=== PATIENT | female | born 1970 | race Caucasian/White ===

== ENCOUNTER 2016-06-20 18:25 | Emergency (ER) | payer BC ==
[2016-06-20 19:03] VITALS: O2SAT 98
[2016-06-20] MEDS ORDERED: PROTONIX 40 MG IV IV ONE ×2 (19:34→19:44)
[2016-06-20] MEDS ORDERED: Zofran 4 MG/2 ML VIAL IV ONE (19:34)
[2016-06-20] MEDS ORDERED: MORPHINE SULFATE 10 MG/ML IV ONE (19:34)
--- NOTE | 2016-06-20 19:37 | ERPHSYRPT ---
- History of Present Illness Time Seen by Provider: 06/20/16 19:15 Historian: patient Exam Limitations: clinical condition Patient Subjective Stated Complaint: pt states she began having abdominal pain since this morning. states she does have an umbilical hernia. worse after mowing yard. Triage Nursing Assessment: pt pink, warm, dry. hernia noted to abdomen. pt tender in right lower quad. bowel sounds present. pt afebrile. Physician History: PATIENT WITH HISTORY OF UMBILICAL HERNIA COMPLAINS OF RIGHT SIDE ABDOMINAL PAIN ADJACENT TO UMBILICAL HERNIA. DENIES NAUSEA, EMESIS, URINARY SYMPTOMS OR DIARRHEA. Timing/Duration: today Quality: cramping Abdominal Pain Onset Location: RLQ, periumbilical Pain Radiation: no radiation Severity of Pain-Max: moderate Severity of Pain-Current: moderate Modifying Factors: Improves With: nothing Associated Symptoms: denies symptoms Previous symptoms: no prior history Allergies/Adverse Reactions: No Known Drug Allergies Allergy (Unverified 06/20/16 19:04) Home Medications: Aspirin/Acetaminophen/Caffeine [Excedrin Migraine Caplet] 1 each PO UD 06/20/16 [History] Hydrocodone Bit/Acetaminophen [[place]iler 5-325 Tablet] 1 each PO Q4-6HPRN PRN [History] Hx Tetanus, Diphtheria Vaccination/Date Given: Yes (unknown) Hx Influenza Vaccination/Date Given: No Hx Pneumococcal Vaccination/Date Given: No Immunizations Up to Date: Yes - Review of Systems Constitutional: No Fever, No Chills Eyes: No Symptoms Ears, Nose, & Throat: No Symptoms Respiratory: No Symptoms, No Cough, No Dyspnea Cardiac: No Symptoms, No Chest Pain, No Edema, No Syncope Abdominal/Gastrointestinal: Abdominal Pain, No Nausea, No Vomiting, No Diarrhea Genitourinary Symptoms: No Dysuria Musculoskeletal: No Symptoms, No Back Pain, No Neck Pain Skin: No Symptoms, No Rash Neurological: No Symptoms, No Dizziness, No Focal Weakness, No Sensory Changes Psychological: No Symptoms Endocrine: No Symptoms All Other Systems: Reviewed and Negative - Past Medical History Pertinent Past Medical History: No - Past Surgical History Past Surgical History: Yes Female Surgical History: Tubal Ligation - Social History Smoking Status: Current every day smoker How long have you smoked: 25 Exposure to second hand smoke: No Drug Use: none Patient Lives Alone: No - Female History Hx Last Menstrual Period: now - Nursing Vital Signs Nursing Vital Signs: Initial Vital Signs Temperature 99.4 F Temperature Source Oral Pulse Rate 101 Respiratory Rate 18 Blood Pressure [] 132/85 Pain Intensity 5 - Physical Exam General Appearance: no apparent distress, alert Eye Exam: PERRL/EOMI, eyes nml inspection Ears, Nose, Throat Exam: normal ENT inspection, pharynx normal, moist mucous membranes Neck Exam: normal inspection, non-tender, supple, full range of motion Respiratory Exam: normal breath sounds, lungs clear, No respiratory distress Cardiovascular Exam: regular rate/rhythm, normal heart sounds Gastrointestinal/Abdomen Exam: soft, normal bowel sounds, tenderness (REDUCIBLE UMBILICAL HERNIA), No mass Back Exam: normal inspection, normal range of motion, No CVA tenderness, No vertebral tenderness Extremity Exam: normal inspection, normal range of motion, pelvis stable Neurologic Exam: alert, oriented x 3, cooperative, normal mood/affect, nml cerebellar function, sensation nml, No motor deficits Skin Exam: normal color, warm, dry SpO2 Interpretation: normal SpO2: 98 Oxygen Delivery: Room Air - CT Exams Abdomen/Pelvis CT Interpretation: Tele-radiologist Report (THERE IS A FAT CONTAINING UMBILICAL HERNIA, NO FREE AIR, NO SIGNIFICANT FLUID COLLECTION, NO CALCIFIED STONES OR DUCTAL DILATION) Ordered Tests: Active Orders 24 hr Category Date Time Status IV Insertion STAT Care 06/20/16 19:34 Active ABDOMEN AND PELVIS W CONTRAST [CT] Stat Exams 06/20/16 19:35 Taken BMP Stat Lab 06/20/16 19:47 Completed CBC W DIFF Stat Lab 06/20/16 19:47 Completed UA W/ MICROSCOPIC Stat Lab 06/20/16 19:40 Completed Medication Summary Generic Name Dose Route Start Last Admin Trade Name Freq PRN Reason Stop Dose Admin Acetaminophen/Hydrocodone Bitart 2 tab 06/20/16 21:53 Filer 10/325 Mg Tablet PO 06/20/16 21:54 SENT HOME W/ PATIENT ONE Sodium Chloride 1,000 mls @ 500 mls/hr 06/20/16 19:45 06/20/16 19:50 Sodium Chloride 0.9% 1000 Ml IV 07/20/16 19:44 500 mls/hr .Q2H RUSH Administration Discontinued Medications Generic Name Dose Route Start Last Admin Trade Name Freq PRN Reason Stop Dose Admin Morphine Sulfate 8 mg 06/20/16 19:34 06/20/16 20:02 Morphine Sulfate 10 Mg/Ml IV 06/20/16 19:35 8 mg STAT ONE Administration Morphine Sulfate Confirm 06/20/16 19:44 Morphine Sulfate 10 Mg/Ml Administered 06/20/16 19:45 Dose 10 mg .ROUTE .STK-MED ONE Ondansetron HCl 4 mg 06/20/16 19:34 06/20/16 19:52 Zofran 4 Mg/2 Ml Vial IV 06/20/16 19:35 4 mg STAT ONE Administration Ondansetron HCl Confirm 06/20/16 19:44 Zofran 4 Mg/2 Ml Vial Administered 06/20/16 19:45 Dose 4 mg .ROUTE .STK-MED ONE Pantoprazole Sodium 40 mg 06/20/16 19:34 06/20/16 19:54 Protonix 40 Mg Iv IV 06/20/16 19:35 40 mg STAT ONE Administration Pantoprazole Sodium Confirm 06/20/16 19:44 Protonix 40 Mg Iv Administered 06/20/16 19:45 Dose 40 mg IV .STK-MED ONE Lab/Rad Data: Laboratory Result Diagrams 06/20/16 19:47 06/20/16 19:47 Laboratory Results 06/20/16 06/20/16 06/20/16 Range/Units 19:47 19:47 19:40 WBC 10.2 (4.0-10.5) K/mm3 RBC 3.89 L (4.1-5.4) M/mm3 Hgb 10.0 L (12.0-16.0) gm/dl Hct 32.1 L (35-47) % MCV 82.5 (78-100) fl MCH 25.7 L (26-32) pg MCHC 31.2 L (32-36) g/dl RDW 14.8 H (11.5-14.0) % Plt Count 283 (150-450) K/mm3 MPV 9.8 H (6-9.5) fl Gran % 87.6 H (36.0-66.0) % Lymphocytes % 6.8 L (24.0-44.0) % Monocytes % 5.1 (0.0-12.0) % Eosinophils % 0.3 (0.00-5.0) % Basophils % 0.2 (0.0-0.4) % Basophils # 0.02 (0-0.4) Sodium 139 (136-145) mEq/L Potassium 3.4 L (3.5-5.1) mEq/L Chloride 104 (98-107) mEq/L Carbon Dioxide 22.3 (21-32) mEq/L Anion Gap 15.8 H (5-15) MEQ/L BUN 9 (9-20) mg/dL Creatinine 0.77 (0.55-1.30) mg/dl Estimated GFR > 60 ML/MIN Glucose 107 (70-110) MG/DL Calcium 8.8 (8.5-10.1) mg/dL Ur Collection Type CLEAN CATCH Urine Color FIDEL (YELLOW) Urine Appearance CLOUDY (CLEAR) Urine pH 5.5 (5-6) Ur Specific [place] >=1.030 (1.005-1.025) Urine Protein 100 (Negative) Urine Glucose (UA) NEGATIVE (NEGATIVE) mg/dL Urine Ketones TRACE (NEGATIVE) Urine Nitrite NEGATIVE (NEGATIVE) Urine Bilirubin MODERATE (NEGATIVE) Urine Urobilinogen 1 (0-1) mg/dL Urine WBC (Auto) NEGATIVE (NEGATIVE) Urine RBC (Auto) LARGE (0-5) [place]/ul Urine Microscopic RBC >100 (0-2) /HPF Urine Microscopic WBC 0-2 (0-5) /HPF Ur Epithelial Cells FEW (FEW) /HPF Urine Bacteria MANY (NEGATIVE) /HPF Urine Mucus SLIGHT (NEGATIVE) /HPF Specimen Received [id number] - Progress Progress Note: 06/20/16 21:42 PATIENT GIVEN NORMAL SALINE 500ML/HR, ZOFRAN 4MG, MORPHINE 8MG IV. Will see patient in: ED Counseled pt/family regarding: lab results, need for follow-up - Departure Time of Disposition: 21:54 Departure Disposition: Home Clinical Impression: REDUCIBLE UMBILICAL/VENTRAL HERNIA Condition: Stable Critical Care Time: No Referrals: DOCTOR,NO FAMILY [Primary Care Provider] - Additional Instructions: CALL DR MCDANIEL GENERAL SURGEON TOMORROW AT TO SCHEDULE A FOLLOWUP APPOINTMENT. [place]CO 10/325 EVERY 4 FOURS FOR PAIN NEEDED. Prescriptions: Hydrocodone/APAP 10/325 mg [Filer 10/325 MG Tablet] 1 tab PO Q4H PRN PRN # 15 tablet PRN Reason: Pain
[2016-06-20] MEDS ORDERED: MORPHINE SULFATE 10 MG/ML ONE (19:44)
[2016-06-20] MEDS ORDERED: Sodium Chloride 0.9% 1000 ML 1,000 ML ONE (19:44)
[2016-06-20] MEDS ORDERED: Zofran 4 MG/2 ML VIAL ONE (19:44)
[2016-06-20] MEDS ORDERED: Sodium Chloride 0.9% 1000 ML 1,000 ML IV SCH (19:45)
[2016-06-20 19:51] LABS: BASOPHIL % 0.2 % (0.0-0.4); Eosinophil % 0.3 % (0.00-5.0); Granulocytes % 87.6 % (36.0-66.0); Lymphocytes % 6.8 % (24.0-44.0); Mean Cell Volume 82.5 fl (78-100); Mean Corpuscular Hemoglobin 25.7 pg (26-32); Mean Platelet Volume 9.8 fl (6-9.5); Monocytes % 5.1 % (0.0-12.0); Platelet Count 283 K/mm3 (150-450); Red Blood Count 3.89 M/mm3 (4.1-5.4); Red Cell Distribution Width 14.8 % (11.5-14.0); White Blood Count 10.2 K/mm3 (4.0-10.5)
[2016-06-20 19:55] LABS: COMPLETE URINE MICROSCOPIC? YES; Collection Type CLEAN CATCH; Ph 5.5 (5-6)
[2016-06-20 19:56] LABS: Bacteria MANY /HPF (NEGATIVE); Epithelial Cells FEW /HPF (FEW); Mucus SLIGHT /HPF (NEGATIVE); WBC 0-2 /HPF (0-5)
[2016-06-20 20:19] LABS: ANION GAP 15.8 MEQ/L (5-15); BLOOD UREA NITROGEN 9 mg/dL (9-20); CHLORIDE 104 mEq/L (98-107); Carbon Dioxide 22.3 mEq/L (21-32); Glucose 107 MG/DL (70-110); Potassium 3.4 mEq/L (3.5-5.1); SODIUM 139 mEq/L (136-145)
[2016-06-20] MEDS ORDERED: Norco 10/325 MG Tablet PO ONE (21:53)
[2016-06-20] MEDS ORDERED: Norco 10/325 MG Tablet ONE (21:56)
[2016-06-20 22:08] VITALS: BP 129/70; PULSE 78
--- NOTE | 2016-06-21 09:11 | XRAY ---
Indication: Periumbilical and right lower quadrant pain. Diarrhea and nausea. Multiple contiguous axial images obtained through the abdomen and pelvis using 80 cc Isovue 370 contrast only. Comparison: None Lung bases are essentially clear. Heart is not enlarged. Noncontrasted stomach and bowel loops appear nonobstructed. Appendix is identified retrocecal measuring 8 mm in diameter. There is minimal periappendiceal stranding especially near the base of the appendix concerning for mild/early appendicitis. No free fluid/air. Tiny calcified splenic granulomas. Liver is enlarged measuring 21 cm in greatest dimension. Remaining liver, gallbladder, pancreas, adrenal glands, kidneys, ureters, bladder, and uterus appear unremarkable. Minimal aortic calcifications. No AAA or pathologic retroperitoneal lymphadenopathy. Osseous structures intact with mild spinal degenerative changes greatest at the lumbosacral junction. Moderate size fatty umbilical hernia. Impression: 1. Prominent appendix with periappendiceal stranding concerning for appendicitis. 2. Incidental hepatomegaly and fatty umbilical hernia. Comment: Preliminary interpretation was made by [facility] who reports nonvisualization of the appendix. I gave telephone report to Dr. Duran in the ER at 0900 hrs. on June 21, 2016. CT DI 15.91
== END 2016-06-20 22:08 | disposition home or self-care (01) ==
LOC: ED 18:25
DX: K43.9 Ventral hernia without obstruction or gangrene (principal); K42.9 Umbilical hernia without obstruction or gangrene
CPT/HCPCS: 36000; 36415; 74177; 80048; 81000; 85025; 96360; 96361; 96374; 96375; 99284; J2270; J2405; A9270-GY

== ENCOUNTER 2016-06-21 10:50 | Observation (INO) | payer BC ==
[~2016-06-21 10:50] MED LIST: BRIDION 200MG/2ML IV ONE; DILAUDID 2 MG INJECTION IV ONE; DIPRIVAN 200 MG/20 ML IV ONE; Decadron 4 MG INJ IV ONE; Quelicin Fliptop 200 MG/10 ML IJ ONE; SUBLIMAZE 100 MCG/2 ML IV ONE; TORAdol 30 mg Injection IJ ONE; Zemuron 100 MG/10 ML IJ ONE; Zofran 4 MG/2 ML VIAL IV ONE
--- NOTE | 2016-06-21 11:22 | ERPHSYRPT ---
- History of Present Illness Time Seen by Provider: 06/21/16 10:59 Historian: patient, family Patient Subjective Stated Complaint: ABD PAIN Triage Nursing Assessment: ABD PAIN SINCE LAST NIGHT. SEEN IN ER YESTERDAY. CALLED BACK TODAY FOR POSSIBLE DISCREPANCY ON THE CT OVERREAD. PT STATES SHE IS 'TENDER' TO RT LOWER QUAD. SLIGHT NAUSEA WITH NO VOMITING. NORMAL BM YESTERDAY Physician History: CC: abd pain Hx: 46 y/o healthy patient seen in ER last night for RLQ abd pain. She had some diarrhea Monday. Yesterday RLQ abd pain. No fever or vomiting. Current normal menses. Prior BTL. She was in ER last night with abd pain. CT prelim report showed umbilical hernia, otherwise neg. This AM the radiologist gave final report of appendiceal stranding and possible early appendicitis. She was called back for evaluation. She continues to have RLQ. She took two exedrin this AM for headache. No fever. Not hungry this AM. No local doctor. No allergies and no chronic medications. Pain is aching and moderate, was worse yesterday but persists. Timing/Duration: day(s) (2) Severity of Pain-Max: moderate Severity of Pain-Current: moderate Allergies/Adverse Reactions: No Known Drug Allergies Allergy (Unverified 06/21/16 11:10) Home Medications: Aspirin/Acetaminophen/Caffeine [Excedrin Migraine Caplet] 1 each PO UD 06/20/16 [History] Hydrocodone Bit/Acetaminophen [[place] 5-325 Tablet] 1 each PO Q4-6HPRN PRN [History] Hx Tetanus, Diphtheria Vaccination/Date Given: Yes Hx Influenza Vaccination/Date Given: No Hx Pneumococcal Vaccination/Date Given: No Immunizations Up to Date: Yes - Review of Systems Constitutional: No Fever, No Chills Eyes: No Symptoms Ears, Nose, & Throat: No Symptoms Respiratory: No Cough Cardiac: No Chest Pain Abdominal/Gastrointestinal: Abdominal Pain, Nausea, Diarrhea (2 days ago), No Vomiting Genitourinary Symptoms: Vaginal Bleeding (current menses), No Dysuria, No Skin: No Rash Neurological: Headache (this AM) All Other Systems: Reviewed and Negative - Past Medical History Pertinent Past Medical History: No - Past Surgical History Past Surgical History: Yes Female Surgical History: Tubal Ligation - Social History Smoking Status: Current every day smoker How long have you smoked: 25 Exposure to second hand smoke: No Drug Use: none Patient Lives Alone: No - Female History Hx Last Menstrual Period: CURRENT - Nursing Vital Signs Nursing Vital Signs: Initial Vital Signs Temperature 98.6 F Temperature Source Oral Pulse Rate 79 Respiratory Rate 18 Blood Pressure [Right Arm] 148/92 Pain Intensity 3 - Physical Exam General Appearance: alert, other (pleasant) Eye Exam: PERRL/EOMI Ears, Nose, Throat Exam: normal ENT inspection, moist mucous membranes Neck Exam: normal inspection, non-tender, supple Respiratory Exam: normal breath sounds, lungs clear Cardiovascular Exam: regular rate/rhythm Gastrointestinal/Abdomen Exam: soft, tenderness (point in RLQ with guarding) Back Exam: normal inspection, normal range of motion Extremity Exam: normal inspection, normal range of motion Neurologic Exam: alert, oriented x 3, cooperative, sensation nml, No motor deficits Skin Exam: warm, dry, No rash SpO2 Interpretation: normal SpO2: 99 Oxygen Delivery: Room Air - Course Nursing assessment & vital signs reviewed: Yes Ordered Tests: Active Orders 24 hr Category Date Time Status IV Insertion STAT Care 06/21/16 11:07 Active NPO (ED) STAT Care 06/21/16 11:07 Active PELVIC [US] Stat Exams 06/21/16 12:05 Ordered BMP Stat Lab 06/21/16 11:10 Received CBC W DIFF Stat Lab 06/21/16 11:10 Completed HCG QUALITATIVE,SERUM Stat Lab 06/21/16 11:10 Received Lab/Rad Data: Laboratory Result Diagrams 06/21/16 11:10 Laboratory Results 06/21/16 Range/Units 11:10 WBC 6.4 (4.0-10.5) K/mm3 RBC 4.02 L (4.1-5.4) M/mm3 Hgb 10.3 L (12.0-16.0) gm/dl Hct 33.5 L (35-47) % MCV 83.3 (78-100) fl MCH 25.6 L (26-32) pg MCHC 30.7 L (32-36) g/dl RDW 14.9 H (11.5-14.0) % Plt Count 277 (150-450) K/mm3 MPV 10.0 H (6-9.5) fl Gran % 74.2 H (36.0-66.0) % Lymphocytes % 16.8 L (24.0-44.0) % Monocytes % 7.2 (0.0-12.0) % Eosinophils % 1.6 (0.00-5.0) % Basophils % 0.2 (0.0-0.4) % Basophils # 0.01 (0-0.4) - Progress Progress Note: 06/21/16 12:05 Pt declines pain meds here. Called Dr Bryant who advised get pelvic sonogram and he will see for consultation. CAlled Dr Figueroa (oc) who will place in obs. Counseled pt/family regarding: lab results, diagnosis, need for follow-up, rad results - Departure Time of Disposition: 12:06 Departure Disposition: Observation Clinical Impression: RLQ abdominal pain, Acute appendicitis Condition: Stable Critical Care Time: No
[2016-06-21 11:50] LABS: BASOPHIL % 0.2 % (0.0-0.4); Eosinophil % 1.6 % (0.00-5.0); Granulocytes % 74.2 % (36.0-66.0); Lymphocytes % 16.8 % (24.0-44.0); Mean Cell Volume 83.3 fl (78-100); Mean Corpuscular Hemoglobin 25.6 pg (26-32); Monocytes % 7.2 % (0.0-12.0); Platelet Count 277 K/mm3 (150-450); Red Blood Count 4.02 M/mm3 (4.1-5.4); Red Cell Distribution Width 14.9 % (11.5-14.0); White Blood Count 6.4 K/mm3 (4.0-10.5)
[2016-06-21 11:58] LABS: ANION GAP 14.5 MEQ/L (5-15); BLOOD UREA NITROGEN 6 mg/dL (9-20); CHLORIDE 106 mEq/L (98-107); Carbon Dioxide 24.8 mEq/L (21-32); Glucose 88 MG/DL (70-110); Potassium 3.6 mEq/L (3.5-5.1); SODIUM 142 mEq/L (136-145)
[2016-06-21 12:48] LABS: ALBUMIN 4.1 g/dL (3.4-5.0); BILIRUBIN,TOTAL 0.9 mg/dL (0.2-1.0); Direct Bilirubin 0.17 MG/DL (0.0-0.2)
[2016-06-21] MEDS ORDERED: Zofran 4 MG/2 ML VIAL IV PRN (12:50)
[2016-06-21] MEDS ORDERED: TYLENOL 325 MG PO PRN (12:56)
[2016-06-21] MEDS ORDERED: DILAUDID 2 MG INJECTION IV PRN (12:57)
--- NOTE | 2016-06-21 13:18 | HP ---
HISTORY OF PRESENT ILLNESS: This is a 46 year-old patient who initially presented to the emergency department on 06/20/2016 complaining of right lower abdominal pain. She had a CT scan done which initially was read as non-visualization of the appendix. This was then over-read by our radiologist today and he was concerned about seeing prominent appendix with periappendiceal stranding concerning for appendicitis. He also noted hepatomegaly and a fatty umbilical hernia. The patient was called back to the emergency room and seen by Dr. Duran who noted she continued to have right lower quadrant tenderness. He called Dr. Bryant who agreed to see the patient here in the hospital but wanted her admitted to medical service so the patient was admitted for further evaluation and treatment by the surgeon. The patient states her pain started yesterday when she was mowing with a rider mower. She states that it was so back that she was crying. At first she thought it was her umbilical hernia but then the pain moved more to the right lower side. She denied any fever. She had some nausea but no vomiting. She reports she had diarrhea all day Monday. She did have a normal bowel movement yesterday morning. She states she last ate about 2300 hours last night. She states her abdomen is better today but it is glass cut off tender. In the emergency room she was given morphine. She thinks this may have given her a headache. The ER gave her a script for [place] but she did not start this she reports. She reports history of cyst on her ovary. She is currently on her period now and also has heavy periods. REVIEW OF SYSTEMS: She has not had any chest pain. No dyspnea. No rashes. No lower extremity edema. She has a headache as described above. Otherwise review of systems as noted in the history of present illness. PAST MEDICAL HISTORY: Menorrhagia. Cyst on her ovary. Anxiety. PAST SURGICAL HISTORY: Tubal ligation. MEDICATIONS: None. ALLERGIES: NKDA. SOCIAL HISTORY: She is . She works at the [employer] in [employer]. She smokes less than one pack per day. She drinks two to three alcoholic drinks a night which she reports she uses for anxiety. She denies any history of withdrawal. She denies any use of marijuana, cocaine, meth, heroin or any other illicit drugs. FAMILY HISTORY: Her mother is living and has hypertension and irregular heartbeat. Her father is and had history of brain cancer, coronary artery disease and hypertension. PHYSICAL EXAMINATION: VITAL SIGNS: Temperature current 98.6F, temperature max last night in the emergency room 99.4F, heart rate 79, respiratory rate 18, blood pressure 148 to 92. Oxygen saturation 99% on room air. GENERAL: The patient is a pleasant talkative lady lying in bed in no acute distress. CVS: She has a regular rate and rhythm. No murmurs, gallops or rubs. CHEST: Clear to auscultation bilaterally. No crackles or wheezes. ABDOMEN: Tenderness in her right lower quadrant with some guarding. No rigidity. Normal bowel sounds. EXTREMITIES: No clubbing, cyanosis or edema. SKIN: Warm, dry and intact. LABORATORY DATA AND TESTS: White blood cell count today is 6,400 with 74% granulocytes, 16% lymphocytes. BMP within normal limits. She has hepatic panel that is pending. Serum test was negative. Please see the radiologist report for the CT scan from last night. ASSESSMENT AND PLAN: 1) Right lower quadrant pain. Again the surgeon has been consulted and plans to see the patient today as there is a concern for possible appendicitis. 2) Hepatomegaly. Her hepatic function panel is in lab. 3) History of anxiety currently stable at this time. 4) History of alcohol use. Need to monitor her closely for symptoms of withdrawal.
[2016-06-21] MEDS: Dextrose 5%-Lr IV Solution 1000 ML 1,000 ML IV SCH ×2 (14:28→15:36)
[2016-06-21] MEDS: Pepcid 20 MG VIAL IV SCH ×2 (14:29→22:00)
[2016-06-21] MEDS: NICODERM CQ 14 MG TOP SCH (14:31)
--- NOTE | 2016-06-21 14:57 | XRAY ---
Indication: Right lower quadrant pain. Two-dimensional transabdominal pelvic ultrasound was performed. Comparison: None Urinary bladder not adequately distended producing poor acoustic window. Uterus is anteverted measuring 12.3 x 5.1 x 7.0 cm. No focal solid/cystic mass. Endometrial stripe measures 8.7 mm in thickness. No endometrial cavity mass or fluid collection. Right ovary measures 2.9 x 2.0 x 2.1 cm and left measures 3.3 x 2.6 x 2.5 cm. Normal perfusion bilaterally. No suspicious adnexal mass or free fluid. Impression: Negative transabdominal pelvic sonogram.
[2016-06-21] MEDS ORDERED: Sensorcaine 0.25% 10 ML ONE (15:07)
[2016-06-21] MEDS ORDERED: Lactated Ringers 1,000 ML IV ONE ×3 (15:07→16:44)
[2016-06-21] MEDS ORDERED: MEFOXIN 2 GM PREMIX** 50 ML IV ONE (15:43)
[2016-06-21] MEDS ORDERED: Lactated Ringers 1,000 ML IV SCH (16:00)
[2016-06-21] MEDS ORDERED: MEFOXIN 2 GM PREMIX** 50 ML IV SCH (16:00)
[2016-06-21] MEDS ORDERED: KEFZOL 1 GM ONE (16:15)
[2016-06-21] MEDS ORDERED: SUBLIMAZE 100 MCG/2 ML ONE (17:46)
[2016-06-22] MEDS: Dextrose 5%-Lr IV Solution 1000 ML 1,000 ML IV SCH (01:56)
[2016-06-22 05:57] LABS: Eosinophil % 0.2 % (0.00-5.0); Granulocytes % 84.6 % (36.0-66.0); Lymphocytes % 10.3 % (24.0-44.0); Mean Cell Volume 83.4 fl (78-100); Mean Corpuscular Hemoglobin 25.8 pg (26-32); Mean Platelet Volume 10.2 fl (6-9.5); Monocytes % 4.9 % (0.0-12.0); Platelet Count 238 K/mm3 (150-450); Red Blood Count 3.37 M/mm3 (4.1-5.4); Red Cell Distribution Width 14.7 % (11.5-14.0); White Blood Count 6.5 K/mm3 (4.0-10.5)
[2016-06-22 06:06] LABS: ANION GAP 14.9 MEQ/L (5-15); BLOOD UREA NITROGEN 7 mg/dL (9-20); CHLORIDE 104 mEq/L (98-107); Carbon Dioxide 23.5 mEq/L (21-32); Glucose 118 MG/DL (70-110); SODIUM 138 mEq/L (136-145)
--- NOTE | 2016-06-22 07:38 | CONS ---
CONSULT DATE: 06/21/2016 HISTORY: The patient is a 46 year-old had some abdominal pain localized to right lower quadrant over the past couple of days. She was in the hospital yesterday. Initial reading on CT scan was nondiagnostic. The radiologist looked at it today and felt she had appendicitis. She came in and they did an ultrasound that did not show any other obvious etiology, according to the staff. It was felt that she would benefit from diagnostic laparoscopy laparoscopic appendectomy possible open. PAST MEDICAL HISTORY: She denied any chronic illnesses. PAST SURGICAL HISTORY: She had tubal in the past. MEDICATIONS: None on a regular basis. ALLERGIES: NKDA. FAMILY HISTORY: Heart disease, diabetes. She has family history of some Crohn's in the past. SOCIAL HISTORY: Smoker less than a pack per day. She does drink alcohol one to three drinks a day, denies abuse. REVIEW OF SYSTEMS: Twelve systems reviewed per admission assessment pertinent for as noted above. Soreness is a little bit better than it was earlier. LAB DATA AND TESTS: White blood cell count was not elevated at 6. However, the radiologist feels distended appendix with inflammatory changes consistent with early acute appendicitis. PHYSICAL EXAMINATION: GENERAL: No acute distress. HEENT: Sclera nonicteric. NECK: No JVD. CHEST: Equal excursion, nonlabored breathing. CVS: Regular rate and rhythm. ABDOMEN: Soft, some localized tenderness, a little bit of guarding in the right lower quadrant. No rebound. Additionally she does have an umbilical area hernia with some incarcerated fat. EXTREMITIES: No significant edema. NEURO: Alert, moving extremities grossly symmetrically. No gross motor deficits noted. IMPRESSION: Acute right lower quadrant pain. CT suspicious for acute appendicitis per radiologist. Given her symptoms I felt it would be safer to proceed with diagnostic laparoscopy, laparoscopic appendectomy possible open. Additionally she has fat included in the hernia will make umbilical port incision likely will reduce that with sutures. She understands we cannot repair with mesh which would have a lower risk of recurrence but do at the same time. General risk of bleeding or infection, risk of trocar injury or hernia, small risk bowel, bladder or blood vessel injury, small risk of intra-abdominal abscess or fistula formation possibly requiring percutaneous or open drainage even at a later date, general risk of anesthesia, deep venous thrombosis, pulmonary embolism, pneumonia, possibility of finding a normal appendix likely will remove incidentally and look for other etiology that might need taken care of surgically. She understands and agrees to the planned procedure, will proceed with diagnostic laparoscopy, laparoscopic appendectomy, possible open as well as repair of the hernia mid abdomen with sutures.
--- NOTE | 2016-06-22 08:04 | OP ---
SURGERY DATE/TIME: 06/21/2016 1610 PREOPERATIVE DIAGNOSIS: Acute right lower quadrant pain and also incarcerated ventral hernia old tubal site incision. POSTOPERATIVE DIAGNOSIS: Acute right lower quadrant pain and also incarcerated ventral hernia old tubal site incision. PROCEDURES: 1) Incarcerated ventral hernia (suture repair only). 2) Laparoscopic appendectomy. SURGEON: Dr. Remigio Bryant. ANESTHESIA: General. ESTIMATED BLOOD LOSS: Minimal. INDICATIONS: As noted above. Risks and benefits explained in detail but not limited to, consent obtained. DESCRIPTION OF PROCEDURE AND FINDINGS: The patient was taken to the operating room. General anesthesia was induced. Abdomen was prepped and draped in usual sterile fashion. After official time out and no disagreement with the planned procedure, a transverse incision made mid abdomen where her hernia was from previous tubal procedure, incarcerated with preperitoneal fat and omentum. Dissection carried down. Veress needle inserted and tested with saline. Pneumoperitoneum accomplished insufflating from opening pressure of 0 to 15. In order not to make multiple holes in the fascia, a 12 mm bladeless port and camera were inserted without difficulty over the right mid to upper abdomen followed by a lower midline 5 mm port and later because the liver was low and her colon was rotated high I added an extra epigastric 5 mm port. The liver was right underneath where the initial port had been placed. Careful inspection of colon, kidney, duodenum, gallbladder, stomach and liver did not reveal any evidence of any injury secondary to port placement. This was thoroughly checked at the beginning of the case as well as at the very end. No signs of any obvious issues with trocar or Veress needle placement. Appendix mobilized upwards definitely acute appendicitis. EndoGIA stapler fired across the base of the appendix to the cecum. Sequential reloads fired across the mesoappendix. Good hemostasis noted. The appendix is placed in Pleatman sac and pulled out the 12 port. At this point again, careful inspection of all the bowel, viscera, duodenum, stomach, gallbladder, liver, colon, small bowel where the original ports had been placed showed no signs of any issues. Copious amount of irrigation irrigating until clear in the right lower quadrant. Because of the inflammatory reaction RAUL drain was placed in the right lower quadrant extended along the right gutter up to the edge of the liver placed to bulb suction. At this point pneumoperitoneum decompressed. Attention was then turned towards the hernia. Dissection carried down. Incarcerated significant amount of omentum and preperitoneal fat was carefully freed from this almost tennis ball-size hernia freed from the surrounding tissue dissected down to the level of the fascia. Finally able to be reduced back in the abdomen and then suture closed. Otherwise closed with interrupted 0 PDS. Copious amount of irrigation irrigating until clear. The tissue was tacked down to the level of the fascia with 3-0 Vicryl. Subcu closed with 3-0 Vicryl. Skin incision closed with 4-0 Vicryl. Steri-Strips and sterile dressing applied. The patient tolerated the procedure well. There were no immediate complications. Findings will be discussed if there is any family available out in the waiting area. Will continue IV antibiotics overnight and possibly discharge home tomorrow if her pain control is good and temperature doing okay and white blood cell count is okay.
[2016-06-22] MEDS ORDERED: MORPHINE SULFATE 4 MG INJ IV PRN (08:50)
[2016-06-22] MEDS ORDERED: NORCO 5/325 MG PO PRN (08:50)
--- NOTE | 2016-06-22 08:56 | PCM.NOTE ---
Date and Time: 06/22/16 0850 Subjective Assessment: She reports some nausea this AM and a headache which she thinks is from the IV pain medication. She has been passing as but has not had a bowel movement. Dr. Mcbride's operative report is not available to me yet as it may have been dictated but at this time has not been transcribed. - Review of Systems Constitutional: No Symptoms Eyes: No Symptoms Ears, Nose, & Throat: No Symptoms Respiratory: No Symptoms Cardiac: No Symptoms Abdominal/Gastrointestinal: Abdominal Pain, Nausea, No Vomiting, No Diarrhea, No Constipation Genitourinary Symptoms: No Symptoms Musculoskeletal: No Symptoms Skin: No Symptoms Objective Exam General Appearance: no apparent distress Neurologic Exam: alert, cooperative, normal mood/affect Skin Exam: normal color, warm, dry, No rash Respiratory Exam: normal breath sounds, lungs clear, No crackles/rales, No rhonchi, No wheezing Cardiovascular Exam: regular rate/rhythm, normal heart sounds, No murmur, No friction rub, No gallop Gastrointestinal/Abdomen Exam: soft, normal bowel sounds, tenderness, other ( dressings in place over abdomen and right lower quadrant. Drain in place on right side with serosangenous drainage in bulb.) Extremity Exam: normal inspection, other (no c/c/e) OBJECTIVE DATA Vital Signs: Vital Signs - 24 hr Temp Pulse Resp BP BP Pulse Ox 06/22/16 07:52 99.1 F 89 18 135/75 94 L 06/22/16 06:30 99.0 F 80 15 142/80 93 L 06/22/16 00:00 98.5 F 90 16 137/78 97 06/21/16 23:45 98.0 F 86 16 143/80 98 06/21/16 21:05 98.6 F 95 H 16 129/69 98 06/21/16 20:05 98.1 F 83 16 141/73 99 06/21/16 19:35 97.8 F 85 16 144/72 100 06/21/16 19:05 97.9 F 83 16 150/74 98 06/21/16 18:50 97.9 F 86 16 141/81 98 06/21/16 18:20 97.9 F 90 16 134/75 93 L 06/21/16 16:00 98.8 F 82 18 128/78 96 06/21/16 15:42 98.8 F 82 18 128/78 96 06/21/16 13:09 99.3 F 63 18 135/87 97 06/21/16 12:06 99 06/21/16 10:58 98.6 F 79 18 148/92 99 Oxygen-Last 24 hours O2 Percentage 2 Liters = 28% O2 Percentage 2 Liters = 28% O2 Percentage 2 Liters = 28% O2 Percentage 2 Liters = 28% O2 Percentage 2 Liters = 28% O2 Percentage 2 Liters = 28% O2 Percentage 2 Liters = 28% O2 Percentage 2 Liters = 28% Pain Assessment - Last Documented Pain Intensity 10 Pain Scale Used [facility] Intake and Output: Intake & Output 06/20/16 06/21/16 06/22/16 06/23/16 06:59 06:59 06:59 06:59 Intake Total 1225 Output Total 50 Balance 1225 -50 Weight 67.767 kg Lab Results: Lab Results-Last 24 Hours 06/22/16 06/22/16 Range/Units 05:15 05:15 WBC 6.5 (4.0-10.5) K/mm3 RBC 3.37 L (4.1-5.4) M/mm3 Hgb 8.7 L (12.0-16.0) gm/dl Hct 28.1 L (35-47) % MCV 83.4 (78-100) fl MCH 25.8 L (26-32) pg MCHC 31.0 L (32-36) g/dl RDW 14.7 H (11.5-14.0) % Plt Count 238 (150-450) K/mm3 MPV 10.2 H (6-9.5) fl Gran % 84.6 H (36.0-66.0) % Lymphocytes % 10.3 L (24.0-44.0) % Monocytes % 4.9 (0.0-12.0) % Eosinophils % 0.2 (0.00-5.0) % Basophils % 0.0 (0.0-0.4) % Basophils # 0 (0-0.4) Sodium 138 (136-145) mEq/L Potassium 4.0 (3.5-5.1) mEq/L Chloride 104 (98-107) mEq/L Carbon Dioxide 23.5 (21-32) mEq/L Anion Gap 14.9 (5-15) MEQ/L BUN 7 L (9-20) mg/dL Creatinine 0.65 (0.55-1.30) mg/dl Estimated GFR > 60 ML/MIN Glucose 118 H (70-110) MG/DL Calcium 8.3 L (8.5-10.1) mg/dL Radiology Exams: Radiology Procedures Category Date Time Status PELVIC [US] Stat Exams 06/21/16 13:30 Completed Assessment/Plan (1) RLQ abdominal pain Current Visit: Yes Status: Acute Assessment & Plan: S/p Surgery. Dr. Mcbride's dictation/ findings not available at this time. He has ordered IV antibiotics. Will await for him to follow up with patient today. (2) Hepatomegaly Current Visit: Yes Status: Acute Assessment & Plan: Her LFTs were normal. Discussed with patient that she needs to cut down on her alcohol to 1 drink or less per day. Plan to refer to GI as outpatient for further evaluation and management. Code(s): R16.0 - HEPATOMEGALY, NOT ELSEWHERE CLASSIFIED
[2016-06-22] MEDS ORDERED: D5W/0.45NS W/ 20mEq KCl 1000 ML 1,000 ML IV SCH (09:00)
[2016-06-22] MEDS: Pepcid 20 MG VIAL IV SCH (09:13)
[2016-06-22] MEDS: Zosyn 3.375GM/100 Ml D5W 100 ML IV SCH ×2 (09:13→15:12)
[2016-06-22] MEDS: NICODERM CQ 14 MG TOP SCH (09:13)
[2016-06-22] MEDS ORDERED: Colace 100 MG PO SCH (10:00)
--- NOTE | 2016-06-22 15:35 | PCM.DCORD ---
- Discharge Disposition: Home, Self-Care Condition: Fair Prescriptions: New RX: Docusate Sodium 100 mg [Colace 100 MG] 100 mg PO BID #60 capsule Continue RX: Aspirin/Acetaminophen/Caffeine [Excedrin Extra Strength Caplet] 2 tab PO Q6H PRN PRN PRN Reason: Pain Instructions: Appendectomy, Hernia Repair, Use and Care for Your Lebron-Yoder Drain Additional Instructions: Follow up with at [facility] on 06/27/16@ 8:30 a.m. Take prescriptions from surgeon. Per supervisor roving department, this included a script for Augmentin and hydrocodone. Follow up with: BYRON ZACARIAS [COURTESY STAFF] - 06/27/16 8:30 am ELENA SELLERS [ACTIVE STAFF] - 06/27/16 3:15 pm Forms: Discharge Instructions, Patient Portal Information
[2016-06-22 16:34] VITALS: BP 121/82; PULSE 79; O2SAT 90
== END 2016-06-22 16:40 | disposition home or self-care (01) ==
LOC: ED 10:50 → MED SURG 12:40
PROVIDERS: ADMIT Internal Medicine; ATTEND Internal Medicine
PROC: 0WQF0ZZ Repair Abdominal Wall, Open Approach (ICD-10-PCS; principal; 2016-06-21)
PROC: 0DTJ4ZZ Resection of Appendix, Percutaneous Endoscopic Approach (ICD-10-PCS; 2016-06-21)
DX: K43.6 Other and unspecified ventral hernia with obstruction, without gangrene (principal); R10.31 Right lower quadrant pain; Z72.0 Tobacco use; R16.0 Hepatomegaly, not elsewhere classified; F41.9 Anxiety disorder, unspecified; F10.21 Alcohol dependence, in remission
CPT/HCPCS: 00840; 36000; 36415; 76856; 80048; 80076; 84703; 85025; 99285; G0378; J0330; J0690; J0694; J1100; J1170; J1885; J2405; J2543; J2704; J3010; L0625; A9270-GY